=== PATIENT | male | born 1985 | race Caucasian/White ===

== ENCOUNTER 2018-10-23 14:00 | Outpatient (RCR) | payer MEDICARE, MEDICAID, SELFPAY | END 2018-10-23 15:00 | disposition home or self-care (01) | LOC: PT.CARL 14:00 | PROVIDERS: Visit Provider Family Medicine | DX: M54.6 Pain in thoracic spine (principal) | CPT/HCPCS: 97014; 97035; 97110; 97163; G0283 ==

== ENCOUNTER 2021-06-10 14:00 | Outpatient (RCR) | payer MEDICARE, MEDICAID, SELFPAY | END 2021-06-29 15:06 | disposition home or self-care (01) | LOC: PT.CARL 14:00 | PROVIDERS: Visit Provider Physician Assistant Surgical | DX: M25.372 Other instability, left ankle (principal); M25.371 Other instability, right ankle | CPT/HCPCS: 97010; 97110; 97112; 97163 ==

== ENCOUNTER 2024-06-11 14:17 | Outpatient (CLI) | payer MEDICARE, MEDICAID, SELFPAY ==
--- NOTE | 2024-06-11 14:22 | XR_ITS ---
FINAL REPORT CLINICAL HISTORY: foot pain COMPARISON: None FINDINGS: LEFT FOOT Three views demonstrate no acute fracture or dislocation. The joint spaces appear normal. No acute soft tissue abnormality is seen. IMPRESSION: No acute bony abnormality. Reviewed, Interpreted and Dictated by Jason Jimenez MD Transcribed by Gillian Jamil Authenticated and [facility]
--- NOTE | 2024-06-11 14:22 | XR_ITS ---
FINAL REPORT CLINICAL HISTORY: foot pain COMPARISON: None FINDINGS: RIGHT FOOT Three views demonstrate no acute fracture or dislocation. The joint spaces appear normal. No acute soft tissue abnormality is seen. IMPRESSION: No acute bony abnormality. Reviewed, Interpreted and Dictated by Jason Jimenez MD Transcribed by Gillian Jamil Authenticated and [facility]
== END 2024-06-11 23:59 | disposition home or self-care (01) ==
LOC: RAD 14:19
PROVIDERS: PCP Nurse Practitioner Family; Visit Provider Podiatrist
DX: M79.671 Pain in right foot (principal); M79.672 Pain in left foot
CPT/HCPCS: 73630

== ENCOUNTER 2024-06-14 12:40 | Outpatient (CLI) | payer MEDICARE, MEDICAID, SELFPAY ==
--- NOTE | 2024-06-14 12:45 | US_ITS ---
FINAL REPORT CLINICAL HISTORY: decreased sensation, instability FINDINGS: LOWER EXTREMITY SEGMENTAL PRESSURE MEASUREMENTS FINDINGS: Pressure indices are as follows: RIGHT LOWER EXTREMITY: Thigh: 1.01 Calf: 1.10 Ankle, posterior tibial artery: 1.20 Ankle, dorsalis pedis: 1.20 Toe: 0.71 JESUS: 1.20 Comments: Within normal limits LEFT LOWER EXTREMITY: Thigh: 1.18 Calf: 1.13 Ankle, posterior tibial artery: 1.10 Ankle, dorsalis pedis: 1.32 Toe: 0.90 JESUS: 1.32 Comments: Within normal limits IMPRESSION: No evidence of peripheral vascular disease in the bilateral lower extremities. Reviewed, Interpreted and Dictated by Jason Jimenez MD Transcribed by Deisy Gibbs Authenticated and [facility]
== END 2024-06-14 23:59 | disposition home or self-care (01) ==
PROVIDERS: PCP Nurse Practitioner Family; Visit Provider Podiatrist
DX: R09.89 Other specified symptoms and signs involving the circulatory and respiratory systems (principal)
CPT/HCPCS: 93923

== ENCOUNTER 2025-01-13 16:29 | Outpatient (CLI) | payer MEDICARE, MEDICAID, SELFPAY ==
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
--- NOTE | 2025-01-13 16:44 | XR_ITS ---
PROCEDURE INFORMATION: Exam: XR Right Tibia and Fibula Exam date and time: 01/13/2025 4:45 PM Age: 39 years old Clinical indication: Pain; Lower leg; Right; Additional info: Evaluation of right ankle pain TECHNIQUE: Imaging protocol: Radiologic exam of the right tibia and fibula. Views: 2 views. COMPARISON: CR XR FOOT WT BEARING RT 3V 06/11/2024 2:26 PM FINDINGS: Bones/joints: Normal. Soft tissues: Normal. IMPRESSION: No acute findings.
--- NOTE | 2025-01-13 16:44 | XR_ITS ---
PROCEDURE INFORMATION: Exam: XR Right Ankle Exam date and time: 01/13/2025 4:45 PM Age: 39 years old Clinical indication: Pain; Ankle; Right; Additional info: Evaluation of right ankle pain TECHNIQUE: Imaging protocol: Radiologic exam of the right ankle. Views: 3 or more views. COMPARISON: CR XR FOOT WT BEARING RT 3V 06/11/2024 2:26 PM FINDINGS: Bones/joints: Old posttraumatic ossicle versus developmental at the tip of the lateral malleolus. No acute fractures.Impression. Moderate lateral malleolar soft tissue swelling. Soft tissues: See Bones/joints finding. IMPRESSION: 1. No acute fractures. 2. Moderate lateral malleolar soft tissue swelling.
== END 2025-01-13 23:59 | disposition home or self-care (01) ==
LOC: RAD 16:30
PROVIDERS: PCP Nurse Practitioner Family; Visit Provider Podiatrist
DX: M79.89 Other specified soft tissue disorders (principal); M79.671 Pain in right foot; M79.672 Pain in left foot; G89.29 Other chronic pain; M77.42 Metatarsalgia, left foot; M77.41 Metatarsalgia, right foot; M21.6X1 Other acquired deformities of right foot; M21.6X2 Other acquired deformities of left foot; M25.371 Other instability, right ankle; M25.372 Other instability, left ankle; M25.571 Pain in right ankle and joints of right foot; R26.89 Other abnormalities of gait and mobility
CPT/HCPCS: 73590; 73610

== ENCOUNTER 2025-02-24 14:02 | Outpatient (RCR) | payer MEDICARE, MEDICAID, SELFPAY ==
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
== END 2025-02-24 23:59 | disposition home or self-care (01) ==
LOC: PT.CARL 14:02
PROVIDERS: Visit Provider Podiatrist
DX: S93.421A Sprain of deltoid ligament of right ankle, initial encounter (principal); M25.372 Other instability, left ankle
CPT/HCPCS: 97110; 97161

== ENCOUNTER 2025-03-25 14:00 | Outpatient (RCR) | payer MEDICARE, MEDICAID, SELFPAY | END 2025-03-25 23:59 | disposition home or self-care (01) | LOC: PT.CARL 14:00 | PROVIDERS: Visit Provider Podiatrist | DX: S93.421A Sprain of deltoid ligament of right ankle, initial encounter (principal) | CPT/HCPCS: 97110; 97112; 97530 ==

== ENCOUNTER 2025-04-22 12:12 | Outpatient (CLI) | payer MEDICARE, MEDICAID, SELFPAY ==
--- OUTSIDE RECORDS SUMMARY | 2025-04-04 14:15 | XMS_ITS | Encounter Summary ---
Author Organization [facility] Address [address] [place] [address] Care Team Providers Care Glove Examiner Name Role Phone HarjitKadi garcia Chan LUCAS Primary Care Provider [phone] Yelena Yen MD Unavailable Reason for Referral * Imaging (Routine) - Closed Specialty Diagnoses / Procedures Referred By Jeannie estrella Referred To Contact Cardiology Diagnoses TOF (tetralogy of Fallot) S/P transcatheter replacement of pulmonary valve Procedures Echo, Adult Congenital Transthoracic (TTE) Complete Cari Miller APRN [address] [place] [address] Phone: tel: fax: Referral ID Status Reason Start Date Expiration Date V isits Requested Visits Authorized [id number] Closed Perform Procedure 04/12/2024 10/12/2025 1 1 Reason for Visit * Imaging (Routine) - Closed Specialty Diagnoses / Procedures Referred By Jeannie estrella Referred To Contact Cardiology Diagnoses TOF (tetralogy of Fallot) S/P transcatheter replacement of pulmonary valve Procedures Echo, Adult Congenital Transthoracic (TTE) Complete Cari Miller APRN [address] [place] [address] Phone: tel: fax: Referral ID Status Reason Start Date Expiration Date V isits Requested Visits Authorized [id number] Closed Perform Procedure 04/12/2024 10/12/2025 1 1 Encounter Details Date Type Department Care Team (Latest Contact Info) Description 04/04/2025 2:15 PM EST - 04/04/2025 11:59 PM EST Hospital Encounter Cardiac Imaging [address] [place] [address] TOF (tetralogy of Fallot); S/P transcatheter replacement of pulmonary valve Discharge Disposition: Home or Self Care Social History Tobacco Use Types Packs/Day Years Used Date Smoking Tobacco: Former Cigarettes 0.8 15 Passive Smoke Exposure: Never Smokeless Tobacco: Never Alcohol Use Standard Drinks/Week Comments Yes 0 [...] Date Recorded Patient Health Questionnaire-2 Score 0 04/04/2025 Hunger Vital Sign Answer Date Recorded Within [...] place to sleep or slept in a [place] (including now)? No 03/08/2023 PHQ-9 Answer Date Recorded Patient Health Questionnaire-9 Score 0 04/04/2025 Utilities Answer Date Recorded In the past 12 months has th e [employer], gas, oil, or water Rentabilities threatened to shut off services in your home? No 03/08/2023 PHQ-2A Answer Date Recorded Patient Health Questionnaire-2 Score 0 04/07/2023 Sex and Gender Information Value Date Recorded Sex Assigned at Not on file Legal Sex Male 7:16 PM EDT Gender Identity Not on file Sexual Orientation Not on file documented as of this encounter Last Filed Vital Signs Vital Sign Reading Time Taken Comments Blood Pressure 146/79 04/04/2025 3:09 PM EST Pulse - - Temperature - - Respiratory Rate - - Oxygen Saturation - - Inhaled Oxygen Concentration - - Weight 114 kg (251 lb) 04/04/2025 3:09 PM EST Height 200.7 cm (6' 7 ) 04/04/2025 3:09 PM EST Body Mass Index 28.28 04/04/2025 3:09 PM EST documented in this encounter Functional Status * Over the past 2 weeks, how often have you been bothered by any of the following problems? Question Answer Date of Assessment Author Little interest or pleasure in doing things Not at all 04/04/2025 3:04 PM EST Alida Mendez Feeling down, depressed, or hopeless Not at all 04/04/2025 3:04 PM EST Alida Mendez Patient Health Questionnaire -2 Score 0 04/04/2025 3:04 PM EST Alida Mendez * Question Answer Date of Assessment Author Trouble falling or staying a sleep, or sleeping too much Not at all 04/04/2025 3:04 PM EST Alida Mendez Feeling tired or having shane le energy Not at all 04/04/2025 3:04 PM EST Alida Mendez Poor appetite or overeating Not at all 04/04/2025 3: 04 PM Alida Batista Feeling bad about yourself - or that you are a failure or have let yourself or your family down Not at all 04/04/2025 3:04 PM Alida Fernandes Trouble concentrating on thi ngs, such as reading the newspaper or watching television Not at all 04/04/2025 3:04 PM Alida Batista Moving or speaking so slowly that other people could have noticed. Or the opposite - being so fidgety or restless that you have been moving around a lot more than usual Not at all 04/04/2025 3:04 PM Alida Batista Thoughts that you would be b renee off or hurting yourself in some way Not at all 04/04/2025 3:04 PM Alida Batista Patient Health Questionnaire -9 Score 0 04/04/2025 3:04 PM Alida Batista * How difficult have these problems made it for you to do your work, take care of things at home, or get along with other people? Answer Date of Assessment Author Not difficult at all 04/04/2025 3:04 PM EST Alida Lizarraga documented as of this encounter Medications at Time of Discharge acetaminophen (Tylenol) 500 MG tablet Take 1 tablet (500 mg) by mouth if needed. amoxicillin (Amoxil) 500 MG capsuleIndications :S/P transcatheter replacement of pulmonary valve Take 4 caps (2000 mg) 1 hour prior to procedure. 12 capsule 2 04/04/2025 ASPIRIN 81 MG chewable tablet Chew 1 tablet (81 mg) 1 (one) time each day. atorvastatin (Lipitor) 20 MG tablet TAKE 1 TABLET BY MOUTH AT BEDTIME FOR cholesterol lisinopril 40 MG tabletIndications: Essential hypertension Take 1 tablet by mouth daily. 90 tablet 3 04/04/2025 metoprolol succinate XL (Toprol-XL) 25 MG 24 hr tabletIndications: SVT (supraventricular tachycardia) (CMS/HCC) Take 1 tablet by mouth daily. Do not crush or chew. 90 tablet 3 04/04/2025 documented as of this encounter Plan of Treatment Upcoming Encounters Date Type Department Care Team (Late st Contact Info) Description 05/21/2025 11:20 AM EST Office Visit [facility] [place] Ari Kershaw [address] [place] [phone] Soraya Hogue MD [address] [place] [id number] 04/17/2026 9:30 AM EST Appointment Cardiac Imaging [address] [place] [id number] 04/17/2026 11:40 AM EST Office Visit [facility] [address] [place] [phone] Brian Smith MD [address] [place] [phone] documented as of this encounter Procedures Procedure Name Priority Date/Time Associated Diagnosis Comments ECHO, ADULT CONGENITAL TRANSTHORACIC COMPLETE Routine 04/04/2025 3:09 PM EST TOF (tetralogy of Fallot) S/P transcatheter replacement of pulmonary valve documented in this encounter Results * ECHO, ADULT CONGENITAL TRANSTHORACIC COMPLETE (04/04/2025 3:09 PM EST) BSA 2.49 m2 G[facility]LL ISCV Height 200.7 [facility] ISC[facility] Weight 111.6 [facility] ISC[facility] LVIDd 43 mm [facility] ISC[facility] LVIDs 36 mm GISSELL ISCV IVSd 14 mm [facility]LL ISCV LVPWd 14 mm G[facility]LL ISCV LV MASS(C)D 232 g GISSELL ISCV LV RWT 0.65 mm GISSELL ISCV [facility] CV ECHO LV MASS INDEX 93 g/m2 GISSELL ISCV LV EDV(MOD-4ch) 142 mL GISSELL ISCV LV ESV(MOD4ch) 80 mL GISSELL ISCV EF(MOD-sp4) 44 % GISSELL ISCV LV EDV(MOD-2ch) 167 mL GISSELL ISCV LV ESV(MOD2ch) 87 mL GISSELL ISCV EF(MOD-sp2) 48 % GISSELL ISCV EDV(MOD-bp) 155 mL GISSELL ISCV ESV(MOD-bp) 84 mL GISSELL ISCV EF(MOD-bp) 46 % G[facility]SELL ISCV LVOT diam 24 mm [facility]SELL ISCV LVOT AREA 4.5 cm2 G[facility] ISC[facility] LV V1 VTI 15.9 cm GISSELL ISCV SV(LVOT) 72 mL GISSELL ISCV MV E Vmax 99.0 cm/s GISSELL ISCV MV A Vmax 48.2 cm/s GISSELL ISCV MV E/A 2.1 cm/s [facility]SELL ISC[facility] PA V2 VTI 35.6 cm GISSELL ISCV RV base 44 mm G[facility]SELL ISCV TAPSE 12 mm GISSELL ISCV PA acc time 100 msec [facility] mean PAP 34 mmHg [facility] ISC[facility] LV V1 Vmax 87.0 cm/s GISSELL ISCV Ao V2 VTI 26.3 cm GISSELL ISCV Ao mean PG 4 mmHg GISSELL ISCV Ao V2 Vmax 120.0 cm/s GISSELL ISCV Ao max PG 6 mmHg GISSELL ISCV AV VTI Index 0.60 [facility] ISCV TOMER(I,D) 2.7 cm2 G[facility]LL ISCV TOMER(VTI)/BSA_ph l 1.1 cm2/m2 [facility] ISC[facility] MV dec time 190 ms G[facility]SE[facility] ISCV MV P1/2t 55 ms G[facility]SELL ISCV MVA(P1/2t) 4.0 cm2 [facility] ISC[facility] PA MG 8 mmHg G[facility]LL ISCV PA V2 Vmax 187.0 cm/s GISSELL ISCV PA PG 14 mmHg [facility] ISC[facility] Ao Root Diam 39 mm G[facility]LL ISC[facility] PA WV(ACCEL) 34.4 mmHg GISSELL ISCV LV mean PG 2.0 mmHG [facility]SELL ISC[facility] LV V1 mean 65.3 cm/sec [facility]LL ISCV LV max PG 3.0 mmHg GISSELL ISCV LVLs ap2 8.1 mm GISSELL ISCV AV-pr VR 0.7 [facility] ISC[facility] Ao V2 mean 98.8 cm/s [facility] ISC[facility] LV Lat e' Velocity 11.6 cm/s G[facility]LL ISCV LV Sept e' Chato 8.7 cm/s G[facility]SELL ISCV Lat E/e' 8.5 [facility]LL ISCV Sep E/e' 11.4 GISSELL ISCV Avg E/e' 10.0 GISSELL ISCV LAV(MOD-bp) Indexed 9 mL/m2 GISSELL ISCV LAV(MOD-4ch) 12 mL GISSELL ISCV LAV(MOD-2ch) 33 mL G[facility]SELL ISCV RAP systole 3 mmHg GISSELL ISCV RA MOD 4Ch 47 mL GISSELL ISCV MELANIE 19 mL/m2 GISSELL ISCV Anatomical Region Laterality Modality Echocardiography Narrative 04/04/2025 3:39 PM EST History: Tetralogy of Fallot. S/P Right modified BT shunt with 5 mm [place] graft (07-25-85, [facility]). S/P Ligation of BTS, VSD patch closure, Resection of unicuspid PV, RVOT reconstruction with 22 mm homograft and [place] patch, (12-09-87, [facility]). S/P TPVR using 29 mm Natalie S3 valve, Dr. Enamorado, [facility], 03/07/2023. Left Ventricle: The left ventricle is the systemic ventricle. The left ventricle is normal size. There is concentric remodeling. The left ventricular systolic function is mildly reduced. The LVEF as measured by biplane volume is 46%. There is global hypokinesis of the left ventricle. The septal motion is most consistent with a conduction abnormality. Right Ventricle: The right ventricle is the subpulmonic ventricle. The right ventricle is mildly dilated. The right ventricular systolic function is reduced. Aortic Valve: The aortic valve was not well visualized due to poor image quality. There is mild aortic valve regurgitation. There is no hemodynamically significant valvular aortic stenosis. Pulmonic Valve: There is a Natalie S3 transcatheter bioprosthetic pulmonic valve (29 mm Natalie S3). There is no pulmonic regurgitation. There is no pulmonic stenosis. The peak pressure gradient through the pulmonic valve is 14 mmHg at a heart rate of 65 bpm. Compared to the most recently available prior study, and allowing for differences in image quality and technique, there is no significant interval change noted. IVC SVC - Congenital Based on the IVC size and respiratory variation, the estimated right atrial pressure is 3mmHg. Right Atrium - Congenital The right atrial size is normal. Tricuspid Valve - Congenital The tricuspid valve is normal in appearance. There is trace tricuspid regurgitation. There is no tricuspid stenosis. Left Atrium - Congenital The left atrial size is normal. The interatrial septum is intact with no evidence for an atrial septal defect. Mitral Valve - Congenital The mitral valve leaflets are normal in appearance with no evidence of mitral valve prolapse. There is no mitral regurgitation. There is no mitral stenosis. Left Ventricle - Congenital The left ventricle is the systemic ventricle. The left ventricle is normal size. There is concentric remodeling. The left ventricular systolic function is mildly reduced. The LVEF as measured by biplane volume is 46%. There is global hypokinesis of the left ventricle. The septal motion is most consistent with a conduction abnormality. The left ventricular filling pressure is elevated. Right Ventricle - Congenital The right ventricle is the subpulmonic ventricle. The right ventricle is mildly dilated. The right ventricular systolic function is reduced. The spectral Doppler envelope of TR is not adequate for calculating the right ventricular systolic pressure (RVSP). Based upon other 2D and Doppler features, the RVSP is likely elevated. A catheter/lead is present in the right ventricle. Pulmonic Valve - Congenital There is a Natalie S3 transcatheter bioprosthetic pulmonic valve (29 mm Natalie S3). There is no pulmonic regurgitation. There is no pulmonic stenosis. The peak pressure gradient through the pulmonic valve is 14 mmHg at a heart rate of 65 bpm. Aortic Valve - Congenital The aortic valve was not well visualized due to poor image quality. There is mild aortic valve regurgitation. There is no hemodynamically significant valvular aortic stenosis. Pericardium - Congenital No pericardial effusion. Great Vessels The aortic root is normal in size. The sinus of Valsalva (aortic root) diameter is 39 mm by leading edge to leading edge method. The main pulmonary artery is not well visualized. Study Details A complete transthoracic echocardiogram using two-dimensional (2D), m-mode, color and spectral flow Doppler imaging was performed. During the study the apical, parasternal, subcostal and suprasternal view was captured. Overall the study quality was adequate. Height: 200.7 cm. Weight: 111.6 kg. BSA: 2.49 m2. Study Recommendation Compared to the most recently available prior study, and allowing for differences in image quality and technique, there is no significant interval change noted. Cari Miller APRN CV ECHO PROCEDURES Final Re sult documented in this encounter Visit Diagnoses Diagnosis TOF (tetralogy of Fallot) Tetralogy of Fallot S/P transcatheter replacement of pulmonary valve documented in this encounter Additional Health Concerns Assessment Noted Time PHQ-9 Depression Total Score: 0 04/04/20 25 3:04 PM EST A fall risk assessment has been complete d for the patient 04/04/2025 3:04 PM EST A Body Mass Index follow-up plan has been documented for the patient 04/04/2025 4:38 PM EST documented as of this encounter Care Teams Glove Examiner Relationship Specialty Start Date End Date Kadi Lombardi APRN [address] [place] [address] PCP - General 10/25/24 Yelena Yen MD [address] [address] [place] [address] Consulting Physician Neurology 10/25/24 documented as of this encounter
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
--- OUTSIDE RECORDS SUMMARY | 2025-04-17 12:15 | XMS_ITS | Encounter Summary ---
Author Organization Healthcare Address [address] [place] [address] Care Team Providers Care R D Engineer Name Role Phone HarjitKadi garcia Chan LUCAS Primary Care Provider Yelena Yen MD Unavailable Encounter Details Date Type Department Care Team (Latest Contact Info) Description 04/17/2025 12:15 PM EST - 04/17/2025 11:59 PM EST Hospital Encounter Cardiac Imaging [address] [place] [address] ICD (implantable cardioverter-defibr illator) in place Discharge Disposition: Home or Self Care Social [...] place to sleep or slept in a long term (including now)? No 03/08/2023 PHQ-9 Answer Date Recorded Patient Health Questionnaire-9 Score 0 04/04/2025 Utilities Answer Date Recorded In the past 12 months has th e [employer], gas, oil, or water company threatened to shut off services in your home? No 03/08/2023 PHQ-2A Answer Date Recorded Patient Health Questionnaire-2 Score 0 04/07/2023 Sex and Gender Information Value Date Recorded Sex Assigned at Not on file Legal Sex Male 7:16 PM EDT Gender Identity Not on file Sexual Orientation Not on file documented as of this encounter Medications at [...] Description 05/21/2025 11:20 AM EST Office Visit [facility] [address] [facility] [address] Soraya Hogue MD [address] [place] [address] 04/17/2026 9:30 AM EST Appointment Cardiac Imaging [address] [place] [address] 04/17/2026 11:40 AM EST Office Visit [facility] [address] [facility]. [address] [address] Brian Smith MD [address] [place] [address] documented as of this encounter Procedures Procedure Name Priority Date/Time Associated Diagnosis Comments CARDIAC DEVICE CHECK - REMOTE - ICD Routine 04/17/2025 1:29 PM EST ICD (implantable cardioverter-defibr illator) in place documented in this encounter Results * CARDIAC DEVICE CHECK - REMOTE - ICD (04/17/2025 1:29 PM EST) Anatomical Region Laterality Modality Other Narrative 04/17/2025 2:21 PM EST [facility] - Device [facility] Remote CIED Report Name: Rai Colon Date: 04/17/2025 : 1985 Age: 39 y.o. Viewing Cardiology Provider: Tangela Lopez APRN, DNP Reporting period: Reporting period is the last 91 days, with at least 30 days of remote monitoring. Interim reports, if any, reviewed and addressed previously; see remote alert entries for more details. Most recent report, dated 04/17/2025, analysis and summary as follows: Device: Medtronic dual chamber ICD Permanent Programming Mode : AAIR <==> DDDR LRL: 60 bpm MTR: 130 bpm Tachy Zones : VT 188-222 bpm VF > 222 bpm Available measurements within normal limits. See attached report. Pacing Percentage: Atrial: 32.1 % Ventricular: <0.1 % Battery: Service time remainin.3 years Presenting rhythm: Sinus with intermittent atrial pacing with ventricular sense response. Evaluation: Demonstrates appropriate sensing: Yes Demonstrates pacing capture: Yes Arrhythmias: No new arrhythmia of significance since last CIED evaluation. Summary: CIED functioning as expected, with given programming and data. See copy of vendor report in Media for further details us Corina Sullivan John LUCAS CV IMPLANTABLE CARDIAC DEV ICE PROCEDURES Final Result documented in this encounter Visit Diagnoses Diagnosis ICD (implantable cardioverter-defibrillator) in place documented in this encounter Additional Health Concerns Assessment Noted Time PHQ-9 Depression Total Score: 0 04/04/20 3:04 PM EST A fall risk assessment has been complete d for the patient 04/04/2025 3:04 PM EST A Body Mass Index follow-up plan has been documented for the patient 04/04/2025 4:38 PM EST documented as of this encounter Care Teams R D Engineer Relationship Specialty Start Date End Date Kadi Lombardi APRN [address] [place] [address] PCP - General 10/25/24 Yelena Yen MD [address] [facility] [address] [place] [address] Consulting Physician Neurology 10/25/24 documented as of this encounter
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
--- OUTSIDE RECORDS SUMMARY | 2025-04-22 12:16 | XMS_ITS | Encounter Summary ---
Author Organization [facility] Address [address] [place] [address] Care Team Providers Care Family Preservation Worker Name Role Phone HarjitKadi garcia SHAYY Primary Care Provider [phone] Yelena Yen MD Unavailable Encounter Details Date Type Department Care Team (Latest Contact Info) Description 04/04/2025 Travel Social History Tobacco Use Types Packs/Day Years [...] place to sleep or slept in a skilled nursing (including now)? No 03/08/2023 PHQ-9 Answer Date [...] on file documented as of this encounter Functional Status * Over the past 2 weeks, how often have you been bothered by any of the following problems? Question Answer Date of Assessment Author Little interest or pleasure in doing things Not at all 04/04/2025 3:04 PM EST Alida Mendez Feeling down, depressed, or hopeless Not at all 04/04/2025 3:04 PM Alida Batista Patient Health Questionnaire -2 Score 0 04/04/2025 3:04 PM Alida Batista * Question Answer Date of Assessment Author Trouble falling or staying a sleep, or sleeping too much Not at all 04/04/2025 3:04 PM Alida Batista Feeling tired or having shane le energy Not at all 04/04/2025 3:04 PM EST Alida Mendez Poor appetite or overeating Not at all 04/04/2025 3: 04 PM EST Alida Mendez Feeling bad about yourself - or that you are a failure or have let yourself or your family down Not at all 04/04/2025 3:04 PM EST Alida Stanley Trouble concentrating on thi ngs, such as reading the newspaper or watching television Not at all 04/04/2025 3:04 PM EST Alida Mendez Moving or speaking so slowly that other people could have noticed. Or the opposite - being so fidgety or restless that you have been moving around a lot more than usual Not at all 04/04/2025 3:04 PM EST Alida Mendez Thoughts that you would be b renee [...] Alida Lizarraga documented as of this encounter Plan of Treatment Upcoming Encounters Date Type Department Care Team (Late st Contact Info) Description 05/21/2025 11:20 AM EST Office Visit [facility] [place] [address] [facility]. [address] [address] Soraya Hogue MD [address] [place] [address] 04/17/2026 9:30 AM EST Appointment Cardiac Imaging [address] [place] [address] 04/17/2026 11:40 AM EST Office Visit [facility] [place] [address] [facility]. [address] [address] Brian Smith MD [address] [place] [address] documented as of this encounter Visit Diagnoses Not on filedocumented in this encounter Additional Health Concerns Assessment Noted Time PHQ-9 Depression Total Score: 0 04/04/20 3:04 PM EST A fall risk assessment has been complete d for the patient 04/04/2025 3:04 PM EST A Body Mass Index follow-up plan has been documented for the patient 04/04/2025 4:38 PM EST documented as of this encounter Care Teams Family Preservation Worker Relationship Specialty Start Date End Date Kadi Lombardi APRN [address] [place] [address] PCP - General 10/25/24 Yelena Yen MD [address] [place] [address] Consulting Physician Neurology 10/25/24 documented as of this encounter
--- OUTSIDE RECORDS SUMMARY | 2025-04-22 12:16 | XMS_ITS | Encounter Summary ---
Author Organization [facility] Address [address] [place] [address] Care Team Providers Care Construction Electrician Name Role Phone HarjitKadi garcia SHAYY Primary Care Provider [phone] Yelena Yen MD Unavailable Encounter Details Date Type Department Care Team (Latest Contact Info) Description 04/17/2025 Travel Social History Tobacco Use Types Packs/Day [...] on file documented as of this encounter Plan of Treatment Upcoming Encounters Date Type Department Care Team (Late st Contact Info) Description 05/21/2025 11:20 AM EST Office Visit [facility] [place] [address] [place] [address] Soraya Hogue MD [address] [place] [address] 04/17/2026 9:30 AM EST Appointment Cardiac Imaging [address] [place] [address] 04/17/2026 11:40 AM EST Office Visit [facility] [place] [address] [place] [address] Brian Smith MD [address] [place] [address] documented as of this encounter [...] documented as of this encounter Care Teams Construction Electrician Relationship Specialty Start Date End Date Kadi Lombardi APRN [address] [place] [address] PCP - General 10/25/24 Yelena Yen MD [address] [place] [phone] Consulting Physician Neurology 10/25/24 documented as of this encounter
--- OUTSIDE RECORDS SUMMARY | 2025-04-22 12:16 | XMS_ITS | Clinical Summary ---
Author Organization [facility] Address [facility] [place] [address] Care Team Providers Care Cigarette Making Machine Hopper Feeder Name Role Phone Unknown, Attending Provider Primary [...] therelease of HIV test results or diagnoses. [id number] Allergies No known active allergies Medications [...] Used Date Smoking Tobacco: Every Day Cigarettes 24 Started: 2001 E-cigs/Vape Started: 2001 Tobacco Cessation:Ready [...] Depression Screening 02/04/2024 02/03/2023 Immunization: COVID-19 ( - season) 2024 Immunization: Influenza (MyChart) (#1) 2024 Insurance MEDICARE A [place]ID [place] Advance Directives For more information, please contact: [phone] * Full Code (Latest Code Status on File) Date Activated Date Inactivated Comments 01/22/2023 6:36 PM 01/23/2023 8:52 PM Care Teams Cigarette Making Machine Hopper Feeder Relationship Specialty Start Date End Date Unknown, Attending Provider PCP - General 01/22/23
[2025-04-22 12:43] LABS: Hematocrit 40.1 % (42.0-52.0); Hemoglobin 13.9 g/dL (14.1-18.0); Immature Granulocytes % 0.2 %; Mean Corpuscular HGB Conc 34.7 g/dL (31.8-35.4); Mean Corpuscular Hemoglobin 29.5 pg (27.0-31.2); Mean Corpuscular Volume 85.1 fl (80-94); Nucleated Red Blood Cells % 0 %; Platelet Count 190 K/mm3 (142-424); Red Blood Count 4.71 M/mm3 (4.60-6.20); Red Cell Distribution Width-SD 35.7 fL; White Blood Count 4.6 K/mm3 (4.8-10.8)
[2025-04-22 12:54] LABS: Alanine Aminotransferase 40 U/L (12-78); Albumin Level 4.6 g/dl (3.5-5.0); Albumin/Globulin Ratio 1.6 (1.1-1.8); Alkaline Phosphatase 71 U/L (38-126); Anion Gap 8.1 mEq/L (5-15); Aspartate Amino Transferase 38 U/L (17-59); Bilirubin,Total 0.5 mg/dl (0.2-1.3); Blood Urea Nitrogen 18 mg/dl (9-20); Calcium 9.2 mg/dl (8.4-10.2); Carbon Dioxide 31 mmol/L (22.0-30.0); Chloride 103 mmol/L (98-107); Creatinine,Serum 0.90 mg/dl (0.66-1.25); Estimated Glomerular Filt Rate 94 ml/min (>60); GFR (African American) 114 ML/MIN (>60); Globulin 2.9 g/dL (1.3-3.2); Glucose 106 mg/dl (74-100); Potassium 4.1 mmoL/L (3.5-5.1); Sodium 138 mmol/L (136-145); Total Protein,Serum 7.5 g/dl (6.3-8.2); Uric Acid 6.7 mg/dl (3.5-8.5)
[2025-04-22 13:45] LABS: Vitamin B12 677 pg/mL (239-931)
== END 2025-04-22 23:59 | disposition home or self-care (01) ==
LOC: LAB 12:13
PROVIDERS: PCP Nurse Practitioner Family; Visit Provider Specialist
DX: G57.53 Tarsal tunnel syndrome, bilateral lower limbs (principal); M25.371 Other instability, right ankle; M25.372 Other instability, left ankle; G60.9 Hereditary and idiopathic neuropathy, unspecified; G89.29 Other chronic pain; I10 Essential (primary) hypertension; M10.9 Gout, unspecified
CPT/HCPCS: 36415; 80053; 82607; 84550; 85025